=== PATIENT | male | born 1940 | race African-American/Black ===

== ENCOUNTER → 2016-12-04 14:31 | Outpatient (CLI) | payer MEDICARE, OTHER ==
[2012-11-27 15:24] VITALS: BMI 19.5
== END | disposition home or self-care (01) ==
LOC: D.MRI 14:30
DX: M25.512 Pain in left shoulder (principal)

== ENCOUNTER → 2019-04-16 06:15 | Day surgery (SDC) | payer MEDICARE, OTHER ==
[2019-04-14 09:12] LABS: CALC OSMOLALITY 278 mosm/kg (275-300); CALCIUM 8.9 mg/dL (8.5-10.1); CARBON DIOXIDE 30.5 mmol/L (21.0-32.0); CHLORIDE - SERUM 104 mmol/L (98-107); CREATININE - SERUM 0.9 mg/dL (0.6-1.3); GLUCOSE 93 mg/dL (74-106); POTASSIUM - SERUM 4.3 mmol/L (3.5-5.1); SODIUM 140 mmol/L (136-145); UREA NITROGEN 13 mg/dL (7-18); eGFR NON AFRICAN AMERICAN 87 mL/min (90-120)
[2019-04-14 09:19] LABS: HEMATOCRIT 40.9 % (42.0-54.0); HEMOGLOBIN 13.2 g/dL (13.5-17.5); MCH 26.8 pg (26.0-34.0); MCHC 32.3 g/dL (31.0-37.0); MEAN PLATELET VOLUME 10.6 fL (7.4-10.4); RBC 4.93 10x6/uL (4.20-6.10); RDW 15.2 % (11.5-14.5); WBC 4.5 10x3/uL (4.8-10.8)
[~2019-04-16] VITALS: Ht 177.8 cm; Wt 63.5 kg
[~2019-04-16 06:15] MED LIST: ACETAMINOPHEN500 M1 PO; BAYER CHEWABLE81 MG PO; BISOPROLOL 5 MG PO; FLOMAX0.4 MG PO; HYDROCODON-ACE1 EA10 PO; LANOXIN125 MCG PO; LISINOPRIL2.5 MG PO; NORVASC2.5 MG PO; ZOCOR40 MG PO; [UNRECOGNIZED DRUG - OTHER] PO
[2019-04-16 06:54] VITALS: BP 128/73; Ht 177.8 cm; Wt 63.5 kg
--- NOTE | 2019-04-16 10:39 | OP ---
PATIENT NAME: TARAH ROCK MEDICAL RECORD: [id number] :42 [facility] ADMISSION DATE: SURGEON: PIERRE PARK MD DATE OF OPERATION: 04/16/2019 PREOPERATIVE DIAGNOSES: Rotator cuff tear of the left shoulder with impingement syndrome. POSTOPERATIVE DIAGNOSES: Rotator cuff tear of the left shoulder with impingement syndrome. PROCEDURES: 1. Arthroscopic rotator cuff repair. 2. Arthroscopic distal clavicle excision done through separate incision. 3. Arthroscopic subacromial decompression with acromioplasty and bursectomy. SURGEON: Pierre Park MD ASSISTANT PROFESSOR OF EDUCATION: Arjun Sow. INTRAOPERATIVE COMPLICATIONS: None. SUMMARY OF PATHOLOGIC FINDINGS: Consistent with the preoperative MRI. The patient had a very small rotator cuff tear; however, yifn-ug-qxmo, which was amenable to jfsc-mf-vzma repair rather than anchored repair. 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 OPERATIVE SUMMARY IN DETAIL: After obtaining the appropriate preoperative orthopedic surgery consent as well as anesthetic consultation, evaluation and clearance, the patient was brought to the operating room and placed on operating table in supine position. After general laryngeal mask airway was administered, the patient was placed in right lateral decubitus position. All pressure points were well padded to include down leg peroneal pad as well as axillary roll. The patient was held firmly to the operating table using the vacuum pack suction system. Left upper extremity and shoulder were then prepped and draped in routine sterile fashion. The arm was held in the Arthrex traction boom at 30 degrees of forward flexion, 30 degrees of abduction with 10 pounds of traction laterally. Arthroscopy was established in the glenohumeral joint from the posterior portal. Anterior portal was established from the anterior safe interval. Diagnostic arthroscopy did show the patient to have the above-mentioned findings. Arthroscopy was established in the subacromial space. Harrah tissue ablation system was utilized to denude the undersurface of the acromion of all soft tissue elements and release the coracoacromial ligament. A 5.0 barrel bur was then used to perform decompression and acromioplasty at the level of the acromioclavicular joint. At this point, through a separate arthroscopic anterior incision arthroscopic distal clavicle excision was performed for 1 cm. All bursa was then cleaned across the top of the rotator cuff and the rotator cuff tear as noted above was found. A simple zifh-lg-yjzd bpywew-ja-anhce suture was placed arthroscopically, tied, resulting in reapproximation of the small rotator cuff tear. Having completed this, arthroscopy portals were closed in routine interrupted fashion using 4-0 Prolene. Sterile dressings were applied. The patient was awakened and taken to recovery room in stable condition. All final needle and sponge counts were correct. 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
--- NOTE | 2019-04-16 14:14 | NUR ---
1130 ALL DISCHARGE CRITERIA MET. IV REMOVED WITH CATHALON INTACT. TAKEN OUT VIA WC AND ASSISTED TO CAR WITH FAMILY. ADVISED TO CALL OR COME BACK IF ANY PROBLEMS.
== END | disposition home or self-care (01) ==
LOC: D.OPS 04-14 07:40 → D.PAN 07:30 → D.OPS 07:30
PROVIDERS: Anesthesiology; ATTEND Orthopaedic Surgery
DX: M75.112 Incomplete rotator cuff tear or rupture of left shoulder, not specified as traumatic (principal); M75.42 Impingement syndrome of left shoulder; Z01.812 Encounter for preprocedural laboratory examination

== ENCOUNTER → 2020-04-29 11:16 | Outpatient (CLI) | payer MEDICARE, OTHER ==
[2019-04-16 06:54] VITALS: BMI 20.1
== END | disposition home or self-care (01) ==
LOC: D.HCCECHO 11:16
PROVIDERS: ATTEND Internal Medicine Cardiovascular Disease
DX: I25.10 Atherosclerotic heart disease of native coronary artery without angina pectoris (principal)

== ENCOUNTER 2020-05-31 11:17 | Inpatient (IN) | payer MEDICARE, OTHER ==
[~2020-05-31] VITALS: Ht 177.8 cm; Wt 67.1 kg
--- NOTE | ~2020-05-31 | HEMODYNAMI ---
PATIENT:TARAH ROCK MEDICAL RECORD: [id number] : 42 LOCATION:[facility] ADMISSION DATE: 05/31/20 Generatedon:06/04/202015:24 Patient name: TARAH ROCK Patient #: [id number] SSN: : 1940 Date of study: 06/04/2020 Page: Of Hemodynamic Procedure Report Patient Data Patient Demographics Procedure consent was obtained First Name: TARAH Gender: Male Last Name: SHWETA : 1940 Patient #: [id number] Age: 80 year(s) Race: Black Additional ID: [id number] Contact details [address]: [address] [place] [address] State: [place] City: [place] Zip code: [address] Past Medical History Allergies: No known allergies Admission Admission Data Admission Date: 05/31/2020 Admission Time: 14:08 Room #: [id number] Height (in.): 70 BSA: 1.81 (m2) Height (cm.): 177.8 BMI: 20.52 (kg/m2) Weight (lbs.): 143 Weight (kg.): 64.86 Procedure Procedure Types Cath Procedure Peripheral Cath Diagnostic Procedure 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 Peripheral Procedures Abd/Extremity Extremities Bilat Lower Extremity Procedure Description Procedure Date Procedure Date: 06/04/2020 Procedure Start Time: 12:05 Procedure Staff Name Function Steve Bender MD Performing Physician Tisha Jack RT Picture Engraver Geoff Mc CRNA Additional personnel Herlinda Mercedes RN Nurse Christian Webber RT Scrub Procedure Data Cath Procedure Fluoroscopy Diagnostic fluoroscopy Total fluoroscopy Time: time: 49.8 min 49.8 min Diagnostic fluoroscopy Total fluoroscopy dose: dose: 1986 mGy 1986 mGy Contrast Material Contrast Material Type Amount (ml) Isovue 300 310 Entry Location Entry Primary Successful Side Size Upsize Upsize Entry Closure Succes sful Closure Location (Fr) 1 (Fr) 2 (Fr) Remarks Device Remarks Femoral Exoseal artery Diagnostic catheters Device Type Used For End Catheter Placement DIAGNOSTIC IMT 5Fr Catheter ([id number]) Procedure Medications Medication Administration Route Dosage Heparin Flush Bag added to field 3 bags (1000units/500ml NS) Lidocaine 1% added to field 20 Refer to Anesthesia Notes for Sedation Medications Heparin Bolus I.V. 5000 units Radial Cocktail I.A. 1 syringe (Verapamil 2mg/Nitro 400mcg/Heparin 1500units) Heparin Bolus I.V. 2000 units Nitroglycerin IC/IA I.A. 300 mcg Hemodynamics Rest BSA: 1.81 (m2) O2 Consumption: Estimated: 210.6 (ml/min) O2 Consumption indexed: Estimated:116.35 (ml/min/m) Heart Rate: 75 (bpm) Snapshots Pre Cath Intra NCS Post Cath Vital Signs Time Heart Resp SPO2 etCO2 NIBP (mmHg) Rhythm Pain Sedation Rate (ipm) (%) (mmHg) Status Level (bpm) 11:41:46 77 16 26.5 Aborted NSR 0 (11) 10(A) , No pain 11:43:53 75 15 28 161/82(110) NSR 0 (11) 10(A) , No pain 11:48:13 74 14 31.1 150/78(123) NSR 0 (11) 10(A) , No pain 11:52:29 74 12 28.8 149/81(116) NSR 0 (11) 10(A) , No pain 11:57:28 72 13 100 27.3 Measuring NSR 0 (11) 10(A) , No pain 11:57:41 69 12 100 31.8 147/73(116) NSR 0 (11) 10(A) , No pain 12:01:57 74 13 98 29.6 146/79(114) NSR 0 (11) 10(A) , No pain 12:06:09 91 13 95 1.5 130/91(111) NSR 0 (11) 10(A) , No pain 12:11:07 105 11 99 15.9 Measuring NSR 0 (11) 10(A) , No pain 12:12:31 113 7 99 18.9 Time NSR 0 (11) 10(A) Exceeded , No pain 12:14:06 93 14 100 16.6 165/97(124) NSR 0 (11) 10(A) , No pain 12:18:24 93 16 100 21.2 142/84(108) NSR 0 (11) 10(A) , No pain 12:22:38 98 19 100 11.3 124/76(100) NSR 0 (11) 10(A) , No pain 12:26:44 99 17 100 21.2 131/81(100) NSR 0 (11) 10(A) , No pain 12:30:53 98 18 100 31.1 130/74(106) NSR 0 (11) 10(A) , No pain 12:35:05 92 12 100 34.1 118/70(95) NSR 0 (11) 10(A) , No pain 12:39:15 90 12 100 15.1 108/61(86) NSR 0 (11) 10(A) , No pain 12:43:23 88 9 100 0 106/58(82) NSR 0 (11) 10(A) , No pain 12:47:29 87 11 100 30.3 96/60(76) NSR 0 (11) 10(A) , No pain 12:51:35 85 8 100 31.1 94/51(78) NSR 0 (11) 10(A) , No pain 12:55:38 88 9 100 0 87/50(65) NSR 0 (11) 10(A) , No pain 12:59:42 86 9 100 0 82/46(62) NSR 0 (11) 10(A) , No pain 13:03:42 85 10 100 42.4 85/52(66) NSR 0 (11) 10(A) , No pain 13:07:45 82 9 100 37.1 80/45(60) NSR 0 (11) 10(A) , No pain 13:11:45 90 10 100 22.7 89/51(66) NSR 0 (11) 10(A) , No pain 13:16:44 93 25 100 31.1 Measuring NSR 0 (11) 10(A) , No pain 13:17:25 92 20 100 24.2 135/77(113) NSR 0 (11) 10(A) , No pain 13:21:33 91 18 100 15.1 69/48(64) NSR 0 (11) 10(A) , No pain 13:23:40 99 14 100 10.6 100/62(80) NSR 0 (11) 10(A) , No pain 13:28:19 103 9 95 53.1 137/94(101) NSR 0 (11) 10(A) , No pain 13:32:29 96 25 100 30.3 152/82(118) NSR 0 (11) 10(A) , No pain 13:36:40 109 25 100 13.6 167/102(126) NSR 0 (11) 10(A) , No pain 13:40:46 95 15 100 9.8 108/74(89) NSR 0 (11) 10(A) , No pain 13:44:54 93 14 100 0 89/53(67) NSR 0 (11) 10(A) , No pain 13:48:56 93 13 100 8.3 88/55(66) NSR 0 (11) 10(A) , No pain 13:52:57 90 10 100 0 80/54(68) NSR 0 (11) 10(A) , No pain 13:56:10 91 12 100 9 95/52(80) NSR 0 (11) 10(A) , No pain 14:00:09 96 21 100 14.4 111/68(101) NSR 0 (11) 10(A) , No pain 14:04:15 99 19 100 11.3 113/76(86) NSR 0 (11) 10(A) , No pain 14:08:23 89 11 100 2.2 102/63(80) NSR 0 (11) 10(A) , No pain 14:12:31 82 11 100 8.3 84/50(66) NSR 0 (11) 10(A) , No pain 14:16:33 81 11 100 11.3 77/50(69) NSR 0 (11) 10(A) , No pain 14:20:32 79 11 100 9.8 74/45(58) NSR 0 (11) 10(A) , No pain 14:24:30 79 9 100 10.6 78/48(71) NSR 0 (11) 10(A) , No pain 14:28:30 77 11 100 10.6 81/47(70) NSR 0 (11) 10(A) , No pain 14:32:31 77 10 100 11.3 76/43(58) NSR 0 (11) 10(A) , No pain 14:36:31 76 9 100 11.3 85/44(60) NSR 0 (11) 10(A) , No pain 14:40:31 96 8 100 12.1 103/57(72) NSR 0 (11) 10(A) , No pain 14:44:34 101 10 100 9 103/63(81) NSR 0 (11) 10(A) , No pain 14:48:38 103 11 100 32.5 110/59(76) NSR 0 (11) 10(A) , No pain 14:52:50 115 15 100 26.5 118/64(81) NSR 0 (11) 10(A) , No pain 14:57:08 115 17 100 0.7 129/70(90) NSR 0 (11) 10(A) , No pain 15:01:59 114 16 100 29.5 144/75(108) NSR 0 (11) 10(A) , No pain 15:06:13 113 18 100 27.2 146/73(96) NSR 0 (11) 10(A) , No pain 15:10:27 112 17 100 28.8 139/79(100) NSR 0 (11) 10(A) , No pain 15:15:26 110 8 100 0 Measuring NSR 0 (11) 10(A) , No pain 15:15:28 110 13 100 0 129/78(103) NSR 0 (11) 10(A) , No pain 15:19:36 107 10 100 36.3 120/74(89) NSR 0 (11) 10(A) , No pain 15:23:39 100 33.3 122/81(98) NSR 0 (11) 10(A) , No pain Medications Time Medication Route Dose Verified Delivered Reason Notes Ef fectiveness by by 11:36:54 Heparin Flush added 3 bags Steve Wilson used for Bag to Napoleon Bender MD procedure (1000units/500ml field MEJIA NS) 11:37:05 Lidocaine 1% added 20ml Steve Wilson for local to vial Napoleon Bender MD anesthetic field MEJIA 12:52:10 Refer to Steve Wilson Anesthesia Notes Napoleon Bender MD for Sedation MD Medications 12:52:29 Heparin Bolus I.V. 5000 Steve Pate Per units Daren Bender RN physician 13:32:00 Radial Cocktail I.A. 1 Steve Steve (Verapamil syringe Napoleon Bender MD 2mg/Nitro 400mcg/Heparin 1500units) 13:55:10 Heparin Bolus I.V. 2000 Steve Herlinda Per units Daren Bender RN physician 14:28:27 Nitroglycerin I.A. 300 mcg Steve Wilson IC/IA Napoleon Bender MD MD Procedure Log Time Note 11:25:09 Use device set IR Diagnostic 11:25:10 Tegaderm 4 x 4 (1626W) opened to sterile field. 11:25:11 Sterile Angiographic Pack opened to sterile field. 11:25:12 Bag Decanter (2002S) opened to sterile field. 11:25:13 ACIST Manifold (22026) opened to sterile field. 11:25:14 ACIST Hand Control (52845) opened to sterile field. 11:25:15 ACIST Syringe (20746) opened to sterile field. 11:25:31 SHEATH 5FR Diller (DRU982) opened to sterile field. 11:25:32 TUBING Contrast Injection High Pressure (QBL254U) opened to sterile field. 11:25:40 Micropuncture VSI 4FR kit opened to sterile field. 11:25:47 DOC .035 wire (X99841) opened to sterile field. 11:25:55 CHI 260 wire (W41874) opened to sterile field. 11:26:03 Angiodynamics Omniflush 5Fr 65cm (66960880) opened to sterile field. 11:36:39 GLIDE WIRE ANGLE 260cm (HE3202) opened to sterile field. 11:36:54 Heparin Flush Bag (1000units/500ml NS) 3 bags added to field was administered by Steve Bender MD; used for procedure; Verbal order read back and verified. 11:37:02 Patient Height : 70 inches 11:37:05 Lidocaine 1% 20ml vial added to field was administered by Steve Bender MD; for local anesthetic; Verbal order read back and verified. 11:37:10 Patient Weight : 143 lbs 11:37:14 Time tracking: Regular hours (M-F 7:00 - 5:00) 11:38:10 GLIDE CATHETER 5FR ANGLED 65cm (CG507) opened to sterile field. 11:38:12 - 11:38:19 Plan of Care:Hemodynamics will remain stable., Cardiac rhythm will remain stable., Comfort level will be maintained., Respiratory function will remain adequate., Patient/ family verbilizes understanding of procedure., Procedure tolerated without complication., Recovers from procedure without complications.. 11:38:27 Patient received from Med/Surg to IR Alert and oriented. Tansferred to table in Supine position. 11:38:30 Signed procedure consent form obtained from patient. 11:38:37 H&P Date Dictated: 06/04/2020 Within 30 days and on chart.. 11:38:38 Pre-procedure instructions explained to patient. 11:38:39 Pre-op teaching completed and patient verbalized understanding. 11:38:43 Family unavailable. 11:38:46 Patient NPO since Midnight. 11:38:57 Patient allergic to No known allergies 11:39:02 Is the patient allergic to Iodine/contrast media? No. 11:39:06 Is patient on blood thinner?No 11:39:26 Patient diabetic? No. 11:39:29 - 11:39:32 ----Pre-sedation anethsthesia assessment.----see anesthesia notes for monitoring of patient during procedure 11:39:35 Previous problem with sedation/anesthesia? No ? 11:41:14 ECG and BP/O2 sat monitors applied to patient. 11:41:24 Vital chart was started 11:42:00 Baseline sample Acquired. 11:42:48 Full Disclosure recording started 11:42:54 - 12:03:21 Pre procedure: right dorsailis pedis pulse Doppler 12:03:24 Pre procedure: left dorsailis pedis pulse Doppler 12:03:29 Pre procedure: right posterior tibial pulse Doppler 12:03:33 Pre procedure: left posterior tibial pulse Doppler 12:03:39 Right groin area was prepped with chlora-prep and draped in sterile fashion 12:03:42 - 12:03:50 Physician arrived 12:03:51 --------ALL STOP TIME OUT------ 12:03:51 Final Timeout: patient, procedure, and site verified with staff and physician. All members of the team are in agreement. 12:03:56 Fire Safety Assessment: A--An alcohol-based skin anteseptic being used preoperatively., C--Open oxygen or nitrous oxide is being used. 12:04:02 1) 90+ Normal kidney functon but urine findings or structural abnormalities or genetic trait point to kidney disease. 12:05:03 Procedure started. 12:05:08 Local anesthetic to right femoral artery with Lidocaine 1% by Steve Bender MD.INITIAL ACCESS ONLY 12:20:43 AMPLATZ Super Stiff 75cm wire ([id number]) opened to sterile field. 12:25:45 TORQUE DEVICE PLASTIC .038 ( TD01) opened to sterile field. 12:38:14 Cook Efrain 1 90 cm Guide Sheath opened to sterile field. 12:46:23 CXI Catheter 90cm (C76298) opened to sterile field. 12:52:01 CXI SUPPORT .035 135 CM STR catheter (S96612) opened to sterile field. 12:52:10 Refer to Anesthesia Notes for Sedation Medications was administered by Steve Bender MD; ; Verbal order read back and verified. 12:52:29 Heparin Bolus 5000 units I.V. was administered by Herlinda Mercedes RN; Per physician; Verbal order read back and verified. 13:13:51 Micropuncture VSI 4FR kit opened to sterile field. 13:13:59 CHOICE PT Extra Support J 300cm guide wire (6920008T5) opened to steril e field. 13:14:14 Tegaderm 6 x 8 (1628) opened to sterile field. 13:14:15 Tegaderm 6 x 8 (1628) opened to sterile field. 13:22:39 SHEATH 5FR Diller (PWB053) opened to sterile field. 13:28:28 ROADRUNNER .035 260 glide wire (R92643) opened to sterile field. 13:32:00 Radial Cocktail (Verapamil 2mg/Nitro 400mcg/Heparin 1500units) 1 syring e I.A. was administered by Steve Bender MD; ; Verbal order read back and verified. 13:41:22 COOK SHEATH 6FR RAABE 70CM (Q47382) opened to sterile field. 13:47:52 SHEATH 6FR Destination (RSR01) opened to sterile field. 13:47:53 SHEATH 7FR Destination (RSR04) opened to sterile field. 13:52:35 SNARE, GOOSENECK SNARE 10MM opened to sterile field. 13:55:10 Heparin Bolus 2000 units I.V. was administered by Herlinda Mercedes RN; Per physician; Verbal order read back and verified. 13:56:55 INFLATOR BasixTOUCH (BK1838) opened to sterile field. 13:57:16 Inflate balloon Inflation number: 1 A Evercross 4 x 4 x 135 Balloon ([id number]) was prepped and advanced across the Undefined1 , then inflated . 14:02:58 A DIAGNOSTIC IMT 5Fr Catheter ([id number]) was advanced over the wire an d used for . 14:20:22 GLIDE WIRE ANGLE 260cm (UP4310) opened to sterile field. 14:26:24 GUIDEWIRE V-18 CONTROL ([id number]) opened to sterile field. 14:28:27 Nitroglycerin IC/IA 300 mcg I.A. was administered by Steve Bender MD; ; Verbal order read back and verified. 14:44:57 CHOICE PT Extra Support J 300cm guide wire (8495727M2) opened to steril e field. 14:45:48 Inflate balloon Inflation number: 1 A NANOCROSS ELITE 3 X 60 ([id number] was prepped and advanced across the Undefined2 , then inflated . 14:50:26 Inflate balloon Inflation number: 2 A CHOCOLATE 4.0 x 40 x 135 balloon ([id number]) was prepped and advanced across the Undefined2 , then inflated . 15:04:23 AMPLATZ Super stiff 3mm J 260cm wire ([id number]) opened to sterile field. 15:04:37 SHEATH 7FR Diller (WBN755) opened to sterile field. 15:06:28 EXOSEAL 7Fr (EX700) opened to sterile field. 15:09:25 A sheath was inserted into the Femoral artery 15:09:25 Sheath removed intact; hemostasis achieved with Exoseal to the Femoral artery. 15:14:07 Procedure ended.(Physican Out) 15:15:46 Fluoroscopy time 49.80 minutes. 15:16:07 Fluoroscopy dose: 1985 mGy 15:16:16 Flurop Dose total: 1985 15:16:26 Contrast amount:Isovue 300 310ml. 15:16:28 Procedure and supply charges have been captured, reviewed, submitted an d are correct. 15:17:55 Report given to PCU. 15:24:40 Vital chart was stopped Intervention Summary Intervention Notes Time ActionType Lesion and Equipment Used Action# Pressure Duration Attributes 13:57:16 Inflate Undefined1 Evercross 4 x 4 x 1 0 00:00 balloon 135 Balloon ([id number]) 14:45:48 Inflate Undefined2 NANOCROSS ELITE 2 1 0 00:00 balloon X 60 ([id number] 14:50:26 Inflate Undefined2 CHOCOLATE 4.0 x 2 0 00:00 balloon 40 x 135 balloon ([id number]) Device Usage Item Name Manufacture Quantity Catalog Number [facility] nt Minimal Lot# / Charge Number Stock Stock Serial# Code Tegaderm 4 x 4 3M 1 1626W 232409 690165 46638 5 5 (1626W) Sterile Cardinal 1 [id number] 726533 39969 5 5 Angiographic Pack Health Bag Decanter Microtek 1 2001S 376431 93642 70593 3 5 (2001S) Medical Inc. ACIST Manifold Acist Medical 1 44910 307449 036580 62125 1 5 (91575) Systems Inc ACIST Hand Acist Medical 1 51548 716995 295257 55220 5 5 Control (01527) Systems Inc ACIST Syringe ist Medical 1 26235 464483 871479 46067 4 20 (96210) Systems Inc SHEATH 5FR Terumo 2 GEL325 211180 894144 32280 1 5 Diller (WNM925) TUBING Contrast [facility] 1 TRA858R 130847 308019 06452 8 5 Injection High Pressure (NQN478N) Micropuncture VSI VSI VASCULAR 2 7266V 894029 78089 3 5 4FR kit SOLUTIONS DOC .035 wire [facility] 1 S72180 343405 96790 0 5 (Z22401) CHI 260 wire [facility] 1 F45857 537215 20546 66758 2 5 (S60337) Angiodynamics Angiodynamics 1 86121148 622049 829803 88191 5 5 Omniflush 5Fr 65cm (58049153) GLIDE WIRE ANGLE Terumo 2 OI1744 674171 931082 41919 1 5 260cm (YA8582) GLIDE CATHETER Terumo 1 CG507 148877 27667 7 5 5FR ANGLED 65cm (CG507) AMPLATZ Super Shiloh 1 [id number] 533958 448733 18806 8 5 Stiff 75cm wire Scientific ([id number]) TORQUE DEVICE Shiloh 1 TD01 692192 176617 52917 5 5 PLASTIC .038 ( Scientific TD01) Cook Efrain 1 90 [facility] 1 C66296 296740 123018 75882 7 1 cm Guide Sheath CXI Catheter 90cm [facility] 1 K83996 618349 435472 80091 7 5 [id number] (U32498) CXI SUPPORT .035 [facility] 1 I17714 985752 056149 45071 0 5 [id number] 135 CM STR catheter (M37771) CHOICE PT Extra Shiloh 2 [id number] 336028 632353 13616 2 5 Support J 300cm Scientific guide wire (2488108V7) Tegaderm 6 x 8 3M 2 1628 875263 35196 5 5 (1628) ROADRUNNER .035 Cook Medical 1 Z81859 602418 543376 89112 0 5 [id number] 260 glide wire (F19200) COOK SHEATH 6FR Cook Medical 1 U06554 272943 94050 92971 0 1 [id number] RAABE 70CM (I92947) SHEATH 6FR Terumo 1 RSR01 325789 24572 17970 1 5 Destination (RSR01) SHEATH 7FR Terumo 1 RSR04 303966 763531 70743 9 5 Destination (RSR04) SNARE, GOOSENECK Medtronic 1 JE9316 574698 59052 54265 5 5 SNARE 10MM INFLATOR [facility] Medical 1 VE8690 395916 783688 69495 5 5 BasixTOUCH (UJ6982) Evercross 4 x 4 x Medtronic 1 [id number] 666291 102424 43539 8 5 135 Balloon ([id number]) DIAGNOSTIC IMT Shiloh 1 [id number] 146066 923491 59856 5 60134953 5Fr Catheter Scientific (245516011) GUIDEWIRE V-18 Shiloh 1 536341 804763 31690 4 1 CONTROL Scientific ([id number]) NANOCROSS ELITE 2 Medtronic 1 [id number] 598032 91268 55102 7 1 X 60 ([id number] CHOCOLATE 4.0 x Medtronic 1 [id number] 087034 20975 32917 7 5 40 x 135 balloon O ([id number]) TW AMPLATZ Super Shiloh 1 [id number] 108541 19486 5 5 stiff 3mm J 260cm Scientific wire ([id number]) SHEATH 7FR Terumo 1 HHH406 604171 379913 71683 8 5 Diller (HXG336) EXOSEAL 7Fr Cardinal 1 EX700 100905 915756 28461 3 5 (EX700) Health Signature Audit [place] Stage Time Signature Unsigned Intra-Procedure 06/04/2020 Tisha Jack 3:24:35 PM RT(R) [facility] [address] [place] [address]
[2020-05-31 12:18] LABS: ANION GAP 5.9 mmol/L (8-16); CALCIUM 8.9 mg/dL (8.5-10.1); CARBON DIOXIDE 31.4 mmol/L (21.0-32.0); CREATININE - SERUM 1.1 mg/dL (0.6-1.3); POTASSIUM - SERUM 4.3 mmol/L (3.5-5.1)
[2020-05-31 12:19] LABS: BASOPHILS 0.3 % (0-2); EOSINOPHILS 1.8 % (0-7); HEMATOCRIT 39.5 % (42.0-54.0); HEMOGLOBIN 12.7 g/dL (13.5-17.5); IMMATURE GRANULOCYTES 4.5 % (0-5); MCH 26.8 pg (26.0-34.0); MCHC 32.2 g/dL (31.0-37.0); MCV 83.5 fL (80.0-100.0); MEAN PLATELET VOLUME 9.5 fL (7.4-10.4); MONOCYTES 9.2 % (2-11); NEUTROPHILS 54.2 % (40-80); RBC 4.73 10x6/uL (4.20-6.10); RDW 14.6 % (11.5-14.5); WBC 6.7 10x3/uL (4.8-10.8)
[2020-05-31 12:20] LABS: PLATELET COUNT 287 10x3/uL (130-400)
[2020-05-31 12:24] LABS: APTT 28.9 SECONDS (22.8-39.4); INR 1.05 (0.85-1.17); PROTIME 13.7 SECONDS (11.6-15.0)
[2020-05-31 12:25] LABS: ALBUMIN 3.2 g/dL (3.4-5.0); BILIRUBIN - TOTAL 0.44 mg/dL (0.2-1.3); PROTEIN - SERUM 6.9 g/dL (6.4-8.2)
--- NOTE | 2020-05-31 13:38 | NUR ---
iv established 20 GA LAC
[2020-05-31 13:59] VITALS: BP 126/64
[2020-05-31 15:16] VITALS: BP 116/67; BMI 20.5
[2020-05-31 15:44] LABS: ERYTHROCYTE SEDIMENTATION RATE 18 mm/hr (0-20)
[2020-05-31] MEDS ORDERED: NORVASC5 MG PO (17:55)
[2020-05-31 20:00] VITALS: BP 114/54
[2020-06-01 04:00] VITALS: BP 122/65
--- NOTE | 2020-06-01 07:58 | NUR ---
PT RESTING IN BED WITH EYES OPEN CALL LIGHT IN REACH NO PROBLEMS WILL MONITER
[2020-06-01 09:35] VITALS: BP 135/75
[2020-06-01 11:53] LABS: BASOPHILS 0.2 % (0-2); EOSINOPHILS 2.6 % (0-7); HEMATOCRIT 39.1 % (42.0-54.0); HEMOGLOBIN 12.4 g/dL (13.5-17.5); IMMATURE GRANULOCYTES 2.9 % (0-5); LYMPHOCYTES 28.9 % (15-50); MCH 26.3 pg (26.0-34.0); MCHC 31.7 g/dL (31.0-37.0); MEAN PLATELET VOLUME 9.2 fL (7.4-10.4); NEUTROPHILS 54.4 % (40-80); PLATELET COUNT 255 10x3/uL (130-400); RBC 4.71 10x6/uL (4.20-6.10); RDW 14.8 % (11.5-14.5); WBC 5.4 10x3/uL (4.8-10.8)
[2020-06-01 12:11] LABS: CALC OSMOLALITY 277 mosm/kg (275-300); CALCIUM 8.1 mg/dL (8.5-10.1); CARBON DIOXIDE 28.5 mmol/L (21.0-32.0); CHLORIDE - SERUM 107 mmol/L (98-107); DIGOXIN 0.38 ng/mL (0.90-2.00); GLUCOSE 100 mg/dL (74-106); MAGNESIUM - SERUM 1.9 mg/dL (1.8-2.4); PHOSPHOROUS 3.4 mg/dL (2.5-4.9); POTASSIUM - SERUM 4.1 mmol/L (3.5-5.1); SODIUM 140 mmol/L (136-145); UREA NITROGEN 9 mg/dL (7-18); eGFR NON AFRICAN AMERICAN 77 mL/min (90-120)
[2020-06-01 13:25] VITALS: BP 144/79
[2020-06-01 14:08] VITALS: BMI 20.5
--- NOTE | 2020-06-01 16:07 | NUR ---
UP TO BATHROOM,WITHOUT NEEDS
--- NOTE | 2020-06-01 16:50 | NUR ---
PT RESTING IN BED WITH EYES OPEN CALL LIGHT IN REACH WILL MONITER
[2020-06-01 17:36] VITALS: BP 103/63
--- NOTE | 2020-06-01 19:20 | NUR ---
LYING IN BED. AT BEDSIDE. ALERT AND ORIENTED X4. AMBULATORY. LT ANKLE/FOOT IS RED AND WARM TO TOUCH WITH 1+ EDEMA NOTED. RATES PAIN IN LLE 8 WHEN FLEXING FOOT BUT DENIES NEEDS FOR PAIN MED AT THIS TIME. NS @ 75 MLHR INFUSING IN LT AC. RESP EVEN AND NONLABORED. NO DISTRESS. SR ELEVATED X2. CL IN REACH.
[2020-06-01 20:00] VITALS: BP 119/62
--- NOTE | 2020-06-02 01:22 | NUR ---
LYING ON RT SIDE IN BED WITH EYES CLOSED. RESP EVEN AND NONLABORED. NO DISTRESS. CL IN REACH.
--- NOTE | 2020-06-02 01:35 | NUR ---
WOKE UP AND C/O PAIN IN LT ANKLE RATING 9. MEDICATE WITH MORHPINE ORDERED. OFFERED ZOFRAN BUT DECLINED. CL IN REACH.
--- NOTE | 2020-06-02 02:59 | NUR ---
RESTING QUIETLY WITH EYES CLOSED. NO DISTRESS. RESP EVEN AND NONLABORED. CL IN REACH.
[2020-06-02 04:00] VITALS: BP 113/60; BP 113/62
[2020-06-02 04:51] LABS: HEMATOCRIT 36.1 % (42.0-54.0); HEMOGLOBIN 11.6 g/dL (13.5-17.5); LYMPHOCYTES 28.8 % (15-50); MCHC 32.1 g/dL (31.0-37.0); MCV 84.1 fL (80.0-100.0); MEAN PLATELET VOLUME 9.3 fL (7.4-10.4); NEUTROPHILS 59.6 % (40-80); PLATELET COUNT 266 10x3/uL (130-400); RBC 4.29 10x6/uL (4.20-6.10); WBC 5.4 10x3/uL (4.8-10.8)
[2020-06-02 05:09] LABS: CALC OSMOLALITY 278 mosm/kg (275-300); CARBON DIOXIDE 27.9 mmol/L (21.0-32.0); CHLORIDE - SERUM 106 mmol/L (98-107); GLUCOSE 88 mg/dL (74-106); MAGNESIUM - SERUM 1.8 mg/dL (1.8-2.4); PHOSPHOROUS 3.2 mg/dL (2.5-4.9); POTASSIUM - SERUM 4.4 mmol/L (3.5-5.1); SODIUM 140 mmol/L (136-145); VANCOMYCIN - TROUGH 7.5 ug/mL (10.0-20.0); eGFR NON AFRICAN AMERICAN 77 mL/min (90-120)
[2020-06-02 05:17] LABS: UREA NITROGEN 14 mg/dL (7-18)
--- NOTE | 2020-06-02 06:19 | NUR ---
LYING SUPINE IN BED WITH EYES CLOSED. RESP EVEN AND NONLABORED. NO DISTRESS. CL IN REACH. HAS RESTED WELL THIS SHIFT.
[2020-06-02 10:22] VITALS: BP 118/60
[2020-06-02 13:46] VITALS: BP 126/77
[2020-06-02 18:07] VITALS: BP 160/73
[2020-06-02 20:00] VITALS: BP 133/76
[2020-06-03 04:00] VITALS: BP 133/76
[2020-06-03 06:04] LABS: HEMOGLOBIN 11.9 g/dL (13.5-17.5); LYMPHOCYTES 26.9 % (15-50); MCH 26.5 pg (26.0-34.0); MCHC 31.3 g/dL (31.0-37.0); MCV 84.6 fL (80.0-100.0); NEUTROPHILS 65.4 % (40-80); PLATELET COUNT 247 10x3/uL (130-400); RBC 4.49 10x6/uL (4.20-6.10); RDW 14.9 % (11.5-14.5); WBC 5.7 10x3/uL (4.8-10.8)
[2020-06-03 06:19] LABS: CALC OSMOLALITY 275 mosm/kg (275-300); CARBON DIOXIDE 26.3 mmol/L (21.0-32.0); CHLORIDE - SERUM 107 mmol/L (98-107); CREATININE - SERUM 0.9 mg/dL (0.6-1.3); GLUCOSE 87 mg/dL (74-106); MAGNESIUM - SERUM 1.9 mg/dL (1.8-2.4); PHOSPHOROUS 3.4 mg/dL (2.5-4.9); SODIUM 139 mmol/L (136-145); UREA NITROGEN 11 mg/dL (7-18); eGFR NON AFRICAN AMERICAN 87 mL/min (90-120)
[2020-06-03 06:21] LABS: APTT 35.1 SECONDS (22.8-39.4)
[2020-06-03 06:25] LABS: INR 1.05 (0.85-1.17); PROTIME 13.7 SECONDS (11.6-15.0)
--- NOTE | 2020-06-03 07:15 | NUR ---
REC'D IN BED WITH EYES CLOSED EASILY TO AROUSED WHEN NAME IS CALLED. RESP EVEN AND UNLABORED WITH NO DISTRESS NOTED. ASSESMENT COMPLETED. DENIES ANY PAIN OR DISCOMFORT AT THIS TIME. C/L IN REACH AT BEDSIDE.
[2020-06-03 09:52] VITALS: BP 122/66
--- NOTE | 2020-06-03 12:40 | NUR ---
I have reviewed this patient and I concur with the Shift Assessment completed by the Licensed Practical Nurse today this shift.
--- NOTE | 2020-06-03 13:09 | NUR ---
Nutrition follow-up: Pt NPO today for arteriogram on left lower extremety PO intake of regular diet 100% of last 3 meals Labs reviewed Wt: 143# RDN following.
--- NOTE | 2020-06-03 16:00 | NUR ---
WAS INFORMED BY NURSE FOR IR THAT PT PROCEDURE WILL BE DONE ON TOMORROW SOME TIME. PT AND MADE AWARE.
[2020-06-03 17:49] VITALS: BP 125/72
--- NOTE | 2020-06-03 19:00 | NUR ---
BEDSIDE REPORT RECEIVED AND CARE OF PT ASSUMED. PT LYING IN SUPINE POSITION WATCHING TV. IV TO LEFT AC PATENT WITH NS INFUSING AT 75 ML/HR. WILL MONITOR FOR NEEDS.
--- NOTE | 2020-06-03 21:53 | NUR ---
HS MEDICATIONS GIVEN. HS SNACK GIVEN: ICE CREAM, MADELINE CRACKERS, AND ORANGE JUICE.
--- NOTE | 2020-06-04 | NUR ---
NPO STATUS BEGINS NOW PER ORDER. REMOVED ALL CUPS AND FOOD FROM BEDSIDE TABLE.
[2020-06-04 04:00] VITALS: BP 128/62
[2020-06-04 05:55] LABS: BASOPHILS 0.3 % (0-2); EOSINOPHILS 1.4 % (0-7); HEMATOCRIT 37.8 % (42.0-54.0); IMMATURE GRANULOCYTES 1.2 % (0-5); LYMPHOCYTES 22.5 % (15-50); MCH 26.5 pg (26.0-34.0); MCHC 31.7 g/dL (31.0-37.0); MCV 83.6 fL (80.0-100.0); MEAN PLATELET VOLUME 9.9 fL (7.4-10.4); NEUTROPHILS 64.6 % (40-80); PLATELET COUNT 265 10x3/uL (130-400); RBC 4.52 10x6/uL (4.20-6.10); RDW 14.9 % (11.5-14.5); WBC 5.9 10x3/uL (4.8-10.8)
[2020-06-04 06:10] LABS: CALC OSMOLALITY 275 mosm/kg (275-300); CALCIUM 8.4 mg/dL (8.5-10.1); CARBON DIOXIDE 27.6 mmol/L (21.0-32.0); CHLORIDE - SERUM 105 mmol/L (98-107); GLUCOSE 84 mg/dL (74-106); MAGNESIUM - SERUM 1.9 mg/dL (1.8-2.4); PHOSPHOROUS 3.6 mg/dL (2.5-4.9); POTASSIUM - SERUM 4.5 mmol/L (3.5-5.1); SODIUM 139 mmol/L (136-145); UREA NITROGEN 9 mg/dL (7-18); eGFR NON AFRICAN AMERICAN 77 mL/min (90-120)
[2020-06-04 06:30] VITALS: BP 132/68
[2020-06-04 10:00] VITALS: BP 142/77
[2020-06-04 12:42] VITALS: BP 140/60
[2020-06-04 15:56] VITALS: BP 146/82
--- NOTE | 2020-06-04 16:10 | NUR ---
RETURN BACK FROM PROCEDURE EASILY TO AROUSED WHEN NAME IS CALLED. RESP EVEN AND UNLABORED WITH NO DISTRESS NOTED OR VOICED. DRESSING NOTED TO LEFT ANKLE AND RIGHT GROIN. RECD CALL FROM RN IN IR STATING THAT MD IS GOING TO START PT ON HEPARIN IN ABOUT TWO HOURS. AWAITING ORDERS. NEW IV STARTED TO LEFT FOREARM WHICH IS SL LOCK. REMAIN AT BEDSIDE. C/L IN REACH AT BEDSIDE.
--- NOTE | 2020-06-04 16:28 | NUR ---
I have reviewed this patient and I concur with the Shift Assessment completed by the Licensed Practical Nurse today this shift.
[2020-06-04 17:15] LABS: HEMATOCRIT 41.7 % (42.0-54.0); HEMOGLOBIN 13.2 g/dL (13.5-17.5); MCH 26.2 pg (26.0-34.0); MCHC 31.7 g/dL (31.0-37.0); MCV 82.9 fL (80.0-100.0); MEAN PLATELET VOLUME 9.4 fL (7.4-10.4); RBC 5.03 10x6/uL (4.20-6.10); RDW 14.8 % (11.5-14.5); WBC 6.7 10x3/uL (4.8-10.8)
[2020-06-04 17:33] LABS: INR 1.15 (0.85-1.17); PROTIME 14.7 SECONDS (11.6-15.0)
[2020-06-04 17:52] LABS: APTT 192.2 SECONDS (22.8-39.4)
--- NOTE | 2020-06-04 19:00 | NUR ---
BEDSIDE REPORT RECEIVED AND CARE OF PT ASSUMED. PT LYING IN SUPINE POSITION VISITING WITH SPOUSE. PT MUST LIE FLAT UNTIL 1914 BECAUSE OF PROCEDURE. IV TO LEFT AC PATENT WITH NS INFUSING AT 75 ML/HR.
[2020-06-04 20:00] VITALS: BP 156/80
--- NOTE | 2020-06-04 20:49 | NUR ---
STARTED HEPARIN DRIP AT 800 UNITS PER HOUR PER ORDER. SCHEDULED APTT TO BE DRAWN AT 0230 PER PROTOCOL.
--- NOTE | 2020-06-04 20:56 | NUR ---
HS MEDICATIONS GIVEN TO INCLUDE MORPHINE 4 MG IVP PER REQUEST FOR PAIN.
[2020-06-05] VITALS: BP 146/74
[2020-06-05 02:20] LABS: BASOPHILS 0.1 % (0-2); EOSINOPHILS 0.1 % (0-7); HEMATOCRIT 40.2 % (42.0-54.0); HEMOGLOBIN 12.8 g/dL (13.5-17.5); IMMATURE GRANULOCYTES 0.5 % (0-5); LYMPHOCYTES 9.4 % (15-50); MCH 26.6 pg (26.0-34.0); MCHC 31.8 g/dL (31.0-37.0); MCV 83.6 fL (80.0-100.0); MEAN PLATELET VOLUME 9.3 fL (7.4-10.4); MONOCYTES 4.9 % (2-11); PLATELET COUNT 220 10x3/uL (130-400); RBC 4.81 10x6/uL (4.20-6.10); RDW 14.6 % (11.5-14.5); WBC 8.1 10x3/uL (4.8-10.8)
[2020-06-05 02:32] LABS: CALC OSMOLALITY 278 mosm/kg (275-300); CALCIUM 8.6 mg/dL (8.5-10.1); CARBON DIOXIDE 29.1 mmol/L (21.0-32.0); CHLORIDE - SERUM 104 mmol/L (98-107); MAGNESIUM - SERUM 1.8 mg/dL (1.8-2.4); PHOSPHOROUS 3.4 mg/dL (2.5-4.9); POTASSIUM - SERUM 4.2 mmol/L (3.5-5.1); SODIUM 139 mmol/L (136-145); UREA NITROGEN 7 mg/dL (7-18); eGFR NON AFRICAN AMERICAN 77 mL/min (90-120)
[2020-06-05 02:41] LABS: GLUCOSE 159 mg/dL (74-106)
[2020-06-05 04:00] VITALS: BP 137/65
--- NOTE | 2020-06-05 08:48 | NUR ---
PATIENT SITTING UP ON SIDE OF BED EATING BREAKFAST. FLOR IN ROOM. CO OF PAIN AT A 8 OUT OF 10. MEDS GIVEN PER EMAR. CL IN REACH. WCTM
[2020-06-05 09:17] VITALS: BP 145/83
[2020-06-05 11:12] VITALS: Ht 177.8 cm; Wt 67.1 kg
--- NOTE | 2020-06-05 11:46 | NUR ---
FLOR ASSISTED PT WITH SHOWER AND CHANGING THE BED. CL IN REACH. NO FURTHER NEEDS AT THIS TIME. WCTM
[2020-06-05 13:08] VITALS: BP 130/68
--- NOTE | 2020-06-05 13:50 | NUR ---
PT REQUESTED IV THERAPY RESITED BECAUSE LEFT AC LEAKING. LEFT AC DC'ED WITH TIP INTACT. RESTARTED IV THERAPY IN RIGHT FOREARM WITH A 20G. 2ND ATTEMPT. CL IN REACH. BED IN LOW POSITION. WCTM
--- NOTE | 2020-06-05 14:56 | NUR ---
PT TAKING A NAP. LAYING ON BACK. NO NEEDS AT THIS TIME. WCTM
--- NOTE | 2020-06-05 17:19 | NUR ---
PT SITTING ON SIDE OF BED EATING DINNER. NO CO AT THIS TIME. NO NEEDS AT THIS TIME. WCTM
[2020-06-05 17:29] VITALS: BP 132/69
--- NOTE | 2020-06-05 19:00 | NUR ---
BEDSIDE REPORT RECEIVED AND CARE OF PT ASSUMED. PT LYING IN SUPINE POSITION VISITING WITH SPOUSE. IV TO RIGHT FA PATENT WITH NS INFUSING AT 75 ML/HR, AND IV TO LEFT FA PATENT WITH HEPARIN INFUSING AT 9 ML/HR. WILL MONITOR FOR NEEDS.
[2020-06-05 20:00] VITALS: BP 138/70
--- NOTE | 2020-06-05 20:30 | NUR ---
HS MEDICATIONS GIVEN TO INCLUDE MORPHINE 4 MG IVP PER REQUEST FOR PAIN.
--- NOTE | 2020-06-05 20:45 | NUR ---
GAVE DREA X2 FOR HS SNACK.
[2020-06-06] VITALS: BP 130/67
--- NOTE | 2020-06-06 02:43 | NUR ---
PT REQUESTING PAIN MEDICATION FOR PAIN IN FOOT AT LEVEL 9/10. GAVE MORPHINE 4 MG IVP PER PRN ORDER. WILL CONTINUE TO MONITOR FOR NEEDS.
[2020-06-06 04:00] VITALS: BP 142/70
[2020-06-06 06:26] LABS: BASOPHILS 0.2 % (0-2); EOSINOPHILS 1.9 % (0-7); HEMATOCRIT 35.4 % (42.0-54.0); IMMATURE GRANULOCYTES 0.6 % (0-5); LYMPHOCYTES 22.5 % (15-50); MCH 25.9 pg (26.0-34.0); MCHC 31.1 g/dL (31.0-37.0); MCV 83.3 fL (80.0-100.0); MEAN PLATELET VOLUME 10.2 fL (7.4-10.4); NEUTROPHILS 64.8 % (40-80); PLATELET COUNT 179 10x3/uL (130-400); RBC 4.25 10x6/uL (4.20-6.10); RDW 14.9 % (11.5-14.5); WBC 6.3 10x3/uL (4.8-10.8)
[2020-06-06 06:54] LABS: CALC OSMOLALITY 273 mosm/kg (275-300); CALCIUM 7.7 mg/dL (8.5-10.1); CARBON DIOXIDE 26.2 mmol/L (21.0-32.0); CHLORIDE - SERUM 106 mmol/L (98-107); CREATININE - SERUM 0.8 mg/dL (0.6-1.3); GLUCOSE 117 mg/dL (74-106); MAGNESIUM - SERUM 1.6 mg/dL (1.8-2.4); PHOSPHOROUS 3.8 mg/dL (2.5-4.9); POTASSIUM - SERUM 4.6 mmol/L (3.5-5.1); SODIUM 138 mmol/L (136-145); UREA NITROGEN 5 mg/dL (7-18); eGFR NON AFRICAN AMERICAN > 90 mL/min (90-120)
--- NOTE | 2020-06-06 08:33 | NUR ---
FLOR IN ROOM. PT AND SITTING ON SIDE OF BED EATING BREAKFAST. NO NEEDS AT THIS TIME. CL IN REACH. WCTM
[2020-06-06 09:27] VITALS: BP 148/74
--- NOTE | 2020-06-06 16:06 | NUR ---
PT TAKING A NAP. NO NEEDS AT THIS TIME. WCTM
[2020-06-06 17:48] VITALS: BP 130/70
--- NOTE | 2020-06-06 19:00 | NUR ---
BEDSIDE REPORT RECEIVED AND CARE OF PT ASSUMED. PT LYING IN SUPINE POSITION VISITING WITH SPOUSE. IV TO RIGHT FA PATENT WITH NS INFUSING AT 75 ML/HR, AND LEFT FA PATENT WITH HEPARIN INFUSING AT 8. PEDAL PULSE PALPATED FAINTLY IN LEFT FOOT. WILL MONITOR FOR NEEDS.
--- NOTE | 2020-06-06 19:57 | NUR ---
HS MEDICATIONS GIVEN TO INCLUDE MORPHINE 4 MG IVP PER REQUEST FOR PAIN. WILL MONITOR FOR EFFECTIVENESS.
--- NOTE | 2020-06-06 20:05 | NUR ---
HS SNACK PROVIDED: X2 VANILLA ICE CREAM AND MADELINE CRACKERS.
[2020-06-06 20:28] VITALS: BP 151/67
[2020-06-07 00:24] VITALS: BP 134/73
[2020-06-07 04:51] VITALS: BP 136/75
[2020-06-07 06:41] LABS: HEMOGLOBIN 11.6 g/dL (13.5-17.5); MCH 26.1 pg (26.0-34.0); MCHC 31.4 g/dL (31.0-37.0); MCV 83.1 fL (80.0-100.0); MEAN PLATELET VOLUME 10.1 fL (7.4-10.4); RBC 4.45 10x6/uL (4.20-6.10); RDW 14.7 % (11.5-14.5); WBC 5.8 10x3/uL (4.8-10.8)
[2020-06-07 08:41] VITALS: BP 149/84
[2020-06-07 08:56] LABS: ALBUMIN 2.7 g/dL (3.4-5.0); ALKALINE PHOSPHATASE 42 U/L (30-120); ALT (SGPT) 23 U/L (10-68); BILIRUBIN - TOTAL 0.43 mg/dL (0.2-1.3); CALC OSMOLALITY 275 mosm/kg (275-300); CALCIUM 8.7 mg/dL (8.5-10.1); CARBON DIOXIDE 30.2 mmol/L (21.0-32.0); CHLORIDE - SERUM 105 mmol/L (98-107); GLUCOSE 89 mg/dL (74-106); MAGNESIUM - SERUM 1.7 mg/dL (1.8-2.4); PHOSPHOROUS 3.8 mg/dL (2.5-4.9); PROTEIN - SERUM 6.6 g/dL (6.4-8.2); SODIUM 140 mmol/L (136-145); UREA NITROGEN 6 mg/dL (7-18); eGFR NON AFRICAN AMERICAN 77 mL/min (90-120)
[2020-06-07 08:59] LABS: POTASSIUM - SERUM 3.7 mmol/L (3.5-5.1)
--- NOTE | 2020-06-07 12:12 | NUR ---
PATIENT IN BED TALKING TO FAMILY AT BEDSIDE. DENIES PAIN OR NEEDS AT THIS TIME. BED LOW POSITION, CALL LIGHT IN REACH. WILL CONTINUE TO MONITOR.
[2020-06-07 13:12] VITALS: BP 138/74
[2020-06-07 16:24] VITALS: BP 134/68
[2020-06-07 17:25] LABS: INR 1.12 (0.85-1.17); PROTIME 14.4 SECONDS (11.6-15.0)
[2020-06-07 20:00] VITALS: BP 126/66
--- NOTE | 2020-06-07 20:40 | NUR ---
REC'D CHGE OF SHIFT WALKING ROUNDS IN BED AT BEDSIDE INSTRUCTED NPO AT MIDNITE FOR PROCEDURE VOICES UNDERSTANDING DENIES ANY COMPLAINTS AT PRESENT TIME. WILL CONTINUE TO MONITOR FOR ANY CHGES AND FOLLOW CURRENT PLAN OF CARE.
[2020-06-08] VITALS (54 sets, daily range): BP systolic 103–141; BP diastolic 48–69
[2020-06-08 06:42] LABS: BASOPHILS 0.4 % (0-2); EOSINOPHILS 1.5 % (0-7); HEMATOCRIT 40.1 % (42.0-54.0); HEMOGLOBIN 12.6 g/dL (13.5-17.5); IMMATURE GRANULOCYTES 0.6 % (0-5); LYMPHOCYTES 24.8 % (15-50); MCH 26.1 pg (26.0-34.0); MCHC 31.4 g/dL (31.0-37.0); MCV 83.2 fL (80.0-100.0); MEAN PLATELET VOLUME 11.1 fL (7.4-10.4); NEUTROPHILS 63.7 % (40-80); PLATELET COUNT 240 10x3/uL (130-400); RBC 4.82 10x6/uL (4.20-6.10); RDW 14.8 % (11.5-14.5); WBC 5.5 10x3/uL (4.8-10.8)
--- NOTE | 2020-06-08 06:53 | NUR ---
0600) HEPARIN DRIP DC'D. ORDERED.MULTIPLE PRE-OP ORDERS APPEARING ON NOV DISCUSSED WITH CHARGE NURSE. 629 SURGERY HERE NO CALLED REC'D FROM OR TO PRE-OP
[2020-06-08 06:56] LABS: ALBUMIN 2.8 g/dL (3.4-5.0); ALKALINE PHOSPHATASE 43 U/L (30-120); CALC OSMOLALITY 275 mosm/kg (275-300); CALCIUM 8.8 mg/dL (8.5-10.1); CARBON DIOXIDE 26.7 mmol/L (21.0-32.0); CHLORIDE - SERUM 103 mmol/L (98-107); GLUCOSE 92 mg/dL (74-106); MAGNESIUM - SERUM 1.8 mg/dL (1.8-2.4); POTASSIUM - SERUM 3.7 mmol/L (3.5-5.1); PROTEIN - SERUM 7.2 g/dL (6.4-8.2); SODIUM 139 mmol/L (136-145); UREA NITROGEN 6 mg/dL (7-18); eGFR NON AFRICAN AMERICAN 77 mL/min (90-120)
[2020-06-08 06:58] LABS: ALT (SGPT) 33 U/L (10-68)
--- NOTE | 2020-06-08 09:11 | EC ---
PATIENT:TARAH ROCK DATE OF SERVICE: 05/31/20 SEX: M MEDICAL RECORD: [id number] DATE OF : 42 LOCATION:D.MS [address] AGE OF PATIENT: 80 ADMISSION DATE: 05/31/20 REFERRING PHYSICIAN: INTERPRETING PHYSICIAN: KENY HERNANDEZ MD ECHOCARDIOGRAM REPORT ECHO CHARGES 5 ECHO LIMITED Date: 06/07/20 CLINICAL DIAGNOSIS: CAD, PREOP LV FUNCTION ECHOCARDIOGRAPHIC MEASUREMENTS (adult normal given) AC root (d.<3.7cm) 0 cm LV Septum d (<1.2 cm> 00 cm Valve Excursion 0 cm LV Septum (systole) 0 cm Left Atria (s.<4.0cm> 0 cm LVPW d(<1.2cm) 0 cm RV (d.<2.3cm) 0 cm LVPW (sytole) 0 cm LV diastole(<5.6CM) 0 cm MV E-F(>70mm/sec) 0 cm LV systole 0 cm LVOT Diameter 0 cm MV exc.(>10mm) 0 cm Est.ejection fraction (50-75%) % DOPPLER: LVIT cm/sec A 00 cm/sec E cm/sec LA 0 cm/sec RVSP 0 mmHg LVOT 0 cm/sec AOP1/2T 0 m/s Asc. Ao 0 cm/sec RVOT 0 cm/sec RA 0 cm/sec PA 0 cm/sec AV Gradient Peak 0 mmHg AV Mean 0 mmHg AV Area 0 cm MV Gradient Peak 0 mmHg MV Mean 0 mmHg MV Area 0 cm COMMENTS: Addressing Machine Operator: Thi [facility] Insurance Clerk: 3 Dr. Hood TAPE# PACS Pericardial Effusion N DATE OF SERVICE: Technically limited study for preoperative LV function and valve pathology. Grossly, no LVH. LV internal dimension is normal. Wall motion is normal. EF is greater than or equal to 55%. Aortic valve is tricuspid with good valve excursion. No significant AI. Left atrium appears grossly normal. Mitral valve appears normal. Trace MR. Right-sided chambers are grossly normal. Trace TR. ECHOCARDIOGRAM REPORT [id number] TARAH ROCK TRANSINT:[id number] Voice Confirmation ID: [id number] DOCUMENT ID: [id number] KENY HERNANDEZ MD at 0911 CC: [id number] DICTATION DATE: 06/07/20 2976 MAILMASTER: 06/08/20 0040 ADM IN [facility] [address] [id number]
--- NOTE | 2020-06-08 14:51 | OP ---
PATIENT NAME: TARAH ROCK MEDICAL RECORD: [id number] :44 LOCATION:D.CVI D.CV02 ADMISSION DATE:05/31/20 SURGEON: JOHANNY BRITO MD DATE OF OPERATION: 06/08/2020 SURGEON: Johanny Brito MD PROCEDURE PERFORMED: Left common and superficial femoral endarterectomy with patch angioplasty. PREOPERATIVE DIAGNOSES: Threatened limb ischemia, femoral stenosis. POSTOPERATIVE DIAGNOSES: Threatened limb ischemia, femoral stenosis. ANESTHESIA: General. SPECIMENS: Plaque. COMPLICATIONS: None. CONDITION: Stable. DISPOSITION: CV ICU. BLOOD LOSS: Minimal. FINDINGS: Irregular posterior plaque extending the entire length of the common femoral and circumferentially in the superficial femoral for at least 3 cm, long CorMatrix patch used for closure with good Doppler signals, profunda and superficial femoral. After repair, the indication status post percutaneous intervention by interventional radiology with balloon rupture and incomplete revascularization. PROCEDURE IN DETAIL: The patient was brought to the operating suite, prepped and draped. Vertical incision was made over the left groin, common femoral up to behind the inguinal ligament with a soft spot on the external, preserving the inferior epigastric branch was dissected out the profunda branches, one large lateral branch and superficial femoral were dissected out, encircled with vessel loops. Heparin was given. After the heparin circulated, inflow was controlled with a clamp and backbleeding with vessel loops. Arteriotomy was begun in the region of relatively soft superficial femoral about 3 cm below the origin through the dense calcification up to the proximal common femoral. Plaque was amputated by briefly removing clamp. The calcified clamp was removed as much as possible. Thorough irrigation was undertaken. All bits of loose debris were removed. Backbleeding was allowed from all major vessels. Patch was fashioned to the appropriate size and sutured along the edge of the arteriotomy. Prior to completing the anastomosis, backbleeding again allowed from all major vessels. The anastomosis was completed. After flushing the endarterectomy bed, flow was restored first to the profunda, then to the superficial femoral. Interrupted patch sutures for hemostasis. Good Doppler signal was noted. Protamine was given. Thorough antibiotic irrigation was performed. The wound was closed in 2 layers, Dermabond on the skin. Needle and sponge counts correct and the patient to CV ICU. TRANSINT:[id number] Voice Confirmation ID: [id number] DOCUMENT ID: [id number] OPERATIVE REPORT [id number] SHWETA,JOHANNY DESHPANDE MD at 1451 CC: ANDRES FISCHER [id number] DICTATION DATE: 06/08/2057 STRAPPER: 06/08/20 1323 ADM IN [facility] [address] [id number]
[2020-06-09] VITALS (51 sets, daily range): BP systolic 95–157; BP diastolic 37–76
[2020-06-09 05:51] LABS: BASOPHILS 0.3 % (0-2); EOSINOPHILS 0.7 % (0-7); IMMATURE GRANULOCYTES 0.4 % (0-5); LYMPHOCYTES 14.2 % (15-50); MCH 26.3 pg (26.0-34.0); MCHC 31.8 g/dL (31.0-37.0); MCV 82.5 fL (80.0-100.0); MEAN PLATELET VOLUME 9.8 fL (7.4-10.4); MONOCYTES 7.7 % (2-11); NEUTROPHILS 76.7 % (40-80); PLATELET COUNT 204 10x3/uL (130-400); RDW 14.6 % (11.5-14.5); WBC 6.8 10x3/uL (4.8-10.8)
[2020-06-09 06:14] LABS: RBC 3.54 10x6/uL (4.20-6.10)
[2020-06-09 06:15] LABS: HEMATOCRIT 29.2 % (42.0-54.0); HEMOGLOBIN 9.3 g/dL (13.5-17.5)
[2020-06-09 06:18] LABS: ALKALINE PHOSPHATASE 30 U/L (30-120); ALT (SGPT) 27 U/L (10-68); BILIRUBIN - TOTAL 0.68 mg/dL (0.2-1.3); CALCIUM 7.5 mg/dL (8.5-10.1); CARBON DIOXIDE 27.4 mmol/L (21.0-32.0); CHLORIDE - SERUM 103 mmol/L (98-107); GLUCOSE 103 mg/dL (74-106); MAGNESIUM - SERUM 1.7 mg/dL (1.8-2.4); PROTEIN - SERUM 5.4 g/dL (6.4-8.2); SODIUM 135 mmol/L (136-145); eGFR NON AFRICAN AMERICAN 77 mL/min (90-120)
[2020-06-09 06:19] LABS: CALC OSMOLALITY 268 mosm/kg (275-300); UREA NITROGEN 9 mg/dL (7-18)
--- NOTE | 2020-06-09 10:18 | NUR ---
Nutrition Follow-up: POD 1 L common & superficial femoral endarterectomy and patch angioplasty, POD 5 LLE arteriogram with angioplasty. Good appetite. Reports eating all of breakfast this AM. Diet: Regular Wt: 147.7# (06/09) Last BM: 06/08 Labs noted: Na 135, Ca 7.5, Mg 1.7, Alb 2.0 Meds noted: Senokot, Colace, electrolyte protocol -RD following.
--- NOTE | 2020-06-09 14:24 | NUR ---
REPORT CALLED TO EMERSON RICHEY ON MED II.
--- NOTE | 2020-06-09 14:45 | NUR ---
PATIENT TRANSFERRED TO [facility] ROOM 2121 VIA W/C IN GOOD STABLE CONDITION. PATIENT TRANSFERRED OVER TO BED WITH MINIMAL ASSIST NEEDED.
--- NOTE | 2020-06-09 14:58 | NUR ---
RECEIVED PT FROM CVICU. PT IS AAO AND UP WITH ASSIST. CALL LIGHT W/I REACH. FALL PRECAUTIONS IN PLACE. CVL AND BILAT FOREARM PIV'S SALINE LOCKED. RR EVEN AND UNLABORED ON RA. NO S/S OF DISTRESS NOTED. PT ORIENTED TO ROOM. PT DENIES ANY NEEDS AT THIS TIME. WILL CTM.
--- NOTE | 2020-06-09 16:43 | MORECARE ---
CASE MANAGEMENT DISCHARGE SUMMARY PATIENT: TARAH OCHOA UNIT: [id number] ADM DATE: 05/31/20 AGE: 80 : 42 SEX: M ROOM/BED: D.2121 AUTHOR: CHELY COX PHYSICIAN: REFERRING PHYSICIAN: DERRELL FISCHER MD DATE OF SERVICE: 06/09/20 Discharge Plan Patient Name: TARAH OCHOA [facility] [facility] 1940 Planned Disposition: Home with Home Health Anticipated Discharge Date: Discharge Date: Expected LOS: Initial Reviewer: [email or web address] Initial Review Date: 06/09/2020 Generated: 06/09/20 5:42 pm DCPIA - Discharge Planning Initial Assessment Updated by [email or web address]: Garrett Valladares on 06/09/20 4:40 pm * Is the patient Alert and Oriented? Yes * How many steps to enter\exit or inside your home? 1/0 * PCP Dr. Ku * Pharmacy [facility] [address] * Preadmission Environment Home with Family * ADLs Independent * Equipment None * Other Equipment n/a * List name and contact numbers for known caregivers / representatives who currently or will assist patient after discharge: Claudio Ochoa (Spouse) [phone] * Verbal permission to speak to the caregivers and representatives has been obtained from the patient. Yes * Community resources currently utilized None * Additional services required to return to the preadmission environment? No * Can the patient safely return to the preadmission environment? Yes * Has this patient been hospitalized within the prior 30 days at any hospital? No Patient Name: TARAH OCHOA Page [phone] at 1643 All edits/amendments must be made on the electronic document DICTATION DATE: 06/09/201641 GEAR CHANGER: VINNY 06/09/201641 RPT#: [id number] DC DATE: STATUS: ADM IN [facility] [address] [place] [address] END OF REPORT
[2020-06-10] VITALS: BP 122/60
[2020-06-10 04:00] VITALS: BP 117/56
[2020-06-10 06:53] LABS: BASOPHILS 0.2 % (0-2); EOSINOPHILS 2.8 % (0-7); HEMATOCRIT 31.1 % (42.0-54.0); IMMATURE GRANULOCYTES 0.7 % (0-5); MCH 26.3 pg (26.0-34.0); MCHC 32.2 g/dL (31.0-37.0); MCV 81.8 fL (80.0-100.0); MEAN PLATELET VOLUME 10.2 fL (7.4-10.4); MONOCYTES 11.4 % (2-11); NEUTROPHILS 65.9 % (40-80); PLATELET COUNT 199 10x3/uL (130-400); RDW 14.3 % (11.5-14.5); WBC 5.8 10x3/uL (4.8-10.8)
[2020-06-10 06:58] LABS: ALBUMIN 2.1 g/dL (3.4-5.0); ALKALINE PHOSPHATASE 33 U/L (30-120); ALT (SGPT) 32 U/L (10-68); BILIRUBIN - TOTAL 0.48 mg/dL (0.2-1.3); CALC OSMOLALITY 276 mosm/kg (275-300); CALCIUM 7.7 mg/dL (8.5-10.1); CARBON DIOXIDE 27.2 mmol/L (21.0-32.0); CHLORIDE - SERUM 104 mmol/L (98-107); CREATININE - SERUM 0.8 mg/dL (0.6-1.3); GLUCOSE 133 mg/dL (74-106); MAGNESIUM - SERUM 1.8 mg/dL (1.8-2.4); POTASSIUM - SERUM 3.9 mmol/L (3.5-5.1); SODIUM 138 mmol/L (136-145); UREA NITROGEN 9 mg/dL (7-18); eGFR NON AFRICAN AMERICAN > 90 mL/min (90-120)
[2020-06-10 09:06] VITALS: BP 149/53
[2020-06-10] MEDS ORDERED: PLAVIX75 MG PO (10:10)
--- NOTE | 2020-06-10 10:29 | NUR ---
ESCOBAR CATH DCD 700CCOP AND 10CC BULB. WILL MONITOR VOID.
--- NOTE | 2020-06-10 13:19 | NUR ---
IVS DCD. DC PLANS GIVEN. UNDERSTANDING VOICED. WAITING FOR HIS TO ARRIVE FOR TRANSPORTATION.
--- NOTE | 2020-06-10 14:15 | MORECARE ---
CASE MANAGEMENT DISCHARGE SUMMARY PATIENT: TARAH OCHOA UNIT: [id number] ADM DATE: 05/31/20 AGE: 80 : 42 SEX: M ROOM/BED: D.1992 AUTHOR: KENNY,DOC PHYSICIAN: REFERRING PHYSICIAN: DERRELL FISCHER MD DATE OF SERVICE: 06/10/20 Discharge Plan Patient Name: TARAH OCHOA Facility: [facility]:[place] : 1940 Planned Disposition: Home with Home Health Anticipated Discharge Date: 06/10/20 Discharge Date: Expected LOS: 10 Initial Reviewer: [email or web address] Initial Review Date: 06/09/2020 Generated: 06/10/20 3:15 pm Comments DCP- Discharge Planning Updated by [email or web address]: Merlene Field on 06/10/20 1:[address] BIBI signed for Care IV HHS, per patient request. CM contacted Manuel Snyder, notified of DC today. Faxed required information to Manuel @[phone]. DCP- Discharge Planning Updated by [email or web address]: Garrett Valladares on 06/09/20 3:[address] Patient Name: TARAH OCHOA Admission Status: ER Accout number: [id number] Admission Date: 05-31-2020 : 1940 Admission Diagnosis:CELLULITIS OF LEFT LOWER LIMB Attending: ANDRES FISCHER Current LOS: 9 Anticipated DC Date: Planned Disposition: Home with Home Health Primary Insurance: MEDICARE A & B Discharge Planning Comments: CM met with patient to complete initial dc planning assessment. CM educated patient on the CM role and verbal consent given by patient to speak with , Claudio Ochoa ([phone]) to complete assessment. Phone call to spouse to verify patient's address, phone number, and emergency contact phone numbers. Patient lives at home with his spouse Survenria. At discharge patient plans to return home and feels this is a safe discharge. CM discussed availability of home health, rehab services, and medical equipment with both the patient in hospital and his spouse over the phone. Mrs. Ochoa would like to have some sort of HH service upon discharge. She would like the HH service that she had during her previous recovery. Unfortunately, she does not recall the name of the HH service. POC was not signed for HH choice but will be signed when she calls back with information. CM informed Mrs. Ochoa that service can be coordinated through her PCP at Dr. Ku's office. Mrs. Ochoa stated that she will call CM tomorrow with information. Contact information given to Mrs. Ochoa. Patient is in agreement with his Spouse's recommendation of HH. SNF, IPR, and DME declined. No other DC needs identified at this time. Transportation provider at discharge will be with his spouse, Claudio . CM will continue to follow and will assist as needed with dc plans/needs. Director Television News: Garrett Valladares DCPIA - Discharge Planning Initial Assessment Updated by [email or web address]: Garrett Valladares on 06/09/20 4:40 pm * Is the patient Alert and Oriented? Yes * How many steps to enter\exit or inside your home? 1/0 * PCP Dr. Ku * [facility] [address] * Preadmission Environment Home with Family * ADLs Independent * Equipment None * Other Equipment n/a * List name and contact numbers for known caregivers / representatives who currently or will assist patient after discharge: Claudio Ochoa (Spouse) [phone] * Verbal permission to speak to the caregivers and representatives has been obtained from the patient. Yes * Community resources currently utilized None * Additional services required to return to the preadmission environment? No * Can the patient safely return to the preadmission environment? Yes * Has this patient been hospitalized within the prior 30 days at any hospital? No External Providers External Provider: [facility] Next Contact Date: Service Request Date: Service Type: Resolution: Reviewer: Comments: Coverage Notice Reviewer: [email or web address] - Garrett Valladares Notice Issued Date-Time: 06/09/2020 16:26 Notice Type: IM Discharge Notice Notice Delivered To: Patient Relationship to Patient: Midwife Practitioner Name: Delivery Method: HAND - Hand Delivered Justyna Days: Prior Verbal Notification: Recipient Understood Notice: Yes Recipient Signature: Yes Med Rec Note Co-signed by Attending: Coverage Notice Comment: IMM explained, understood, signed, copy given to patient, and copy placed on chart. Last DP export: 06/09/20 3:42 p Patient Name: TARAH OCHOA Page [id number] at 1415 All edits/amendments must be made on the electronic document DICTATION DATE: 06/10/201414 [employer] CONSULTANT: VINNY 06/10/201414 RPT#: [id number] DC DATE: STATUS: ADM IN [facility] [address] [place] [address] END OF REPORT
--- NOTE | 2020-06-10 15:22 | NUR ---
ESCORTED TO CAR BY W/C.
--- NOTE | 2020-06-10 15:56 | MORECARE ---
CASE MANAGEMENT DISCHARGE SUMMARY PATIENT: TARAH OCHOA UNIT: [id number] ADM DATE: 05/31/20 AGE: 80 : 42 SEX: M ROOM/BED: D.8740 AUTHOR: KENNY,DOC PHYSICIAN: REFERRING PHYSICIAN: DERRELL FISCHER MD DATE OF SERVICE: 06/10/20 Discharge Plan Patient Name: TARAH OCHOA [facility]:[place] : 1940 Planned Disposition: Home with Home Health Anticipated Discharge Date: 06/10/20 Discharge Date: 06/10/2020 Expected LOS: 10 Initial Reviewer: [email or web address] Initial Review Date: 06/09/2020 Generated: 06/10/20 4:56 pm Comments DCP- Discharge Planning Updated by [email or web address]: Merlene Field on 06/10/20 2:[address] BIBI signed for Care IV HHS, per patient request. CM contacted Manuel Snyder, notified of DC today. Faxed required information to Manuel @[phone]. SOC will be Thursday 06/14. DCP- Discharge Planning Updated by [email or web address]: Garrett Valladares on 06/09/20 3:[address] Patient Name: TARAH OCHOA Admission Status: ER Accout number: [id number] Admission Date: 05-31-2020 : 1940 Admission Diagnosis:CELLULITIS OF LEFT LOWER LIMB Attending: ANDRES FISCHER Current LOS: 9 Anticipated DC Date: Planned Disposition: Home with Home Health Primary Insurance: MEDICARE A & B Discharge Planning Comments: CM met with patient to complete initial dc planning assessment. CM educated patient on the CM role and verbal consent given by patient to speak with , Claudio Ochoa ([phone]) to complete assessment. Phone call to spouse to verify patient's address, phone number, and emergency contact phone numbers. Patient lives at home with his spouse Survenria. At discharge patient plans to return home and feels this is a safe discharge. CM discussed availability of home health, rehab services, and medical equipment with both the patient in hospital and his spouse over the phone. Mrs. Ochoa would like to have some sort of HH service upon discharge. She would like the HH service that she had during her previous recovery. Unfortunately, she does not recall the name of the HH service. POC was not signed for HH choice but will be signed when she calls back with HH information. CM informed Mrs. Ochoa that HH service can be coordinated through her PCP at Dr. Ku's office. Mrs. Ochoa stated that she will call CM tomorrow with information. Contact information given to Mrs. Ochoa. Patient is in agreement with his Spouse's recommendation of HH. SNF, IPR, and DME declined. No other DC needs identified at this time. Transportation provider at discharge will be with his spouse, Claudio . CM will continue to follow and will assist as needed with dc plans/needs. Tobacco Weigher: Garrett Valladares DCPIA - Discharge Planning Initial Assessment Updated by [email or web address]: Garrett Valladares on 06/09/20 4:40 pm * Is the patient Alert and Oriented? Yes * How many steps to enter\exit or inside your home? 1/0 * PCP Dr. Ku * [facility] [address] * Preadmission Environment Home with Family * ADLs Independent * Equipment None * Other Equipment n/a * List name and contact numbers for known caregivers / representatives who currently or will assist patient after discharge: Claudio Ochoa (Spouse) [phone] * Verbal permission to speak to the caregivers and representatives has been obtained from the patient. Yes * Community resources currently utilized None * Additional services required to return to the preadmission environment? No * Can the patient safely return to the preadmission environment? Yes * Has this patient been hospitalized within the prior 30 days at any hospital? No Coverage Notice Reviewer: [id number] - Garertt Valladares Notice Issued Date-Time: 06/09/2020 16:26 Notice Type: IM Discharge Notice Notice Delivered To: Patient Relationship to Patient: Repertoire Manager Name: Delivery Method: HAND - Hand Delivered Justyna Days: Prior Verbal Notification: Recipient Understood Notice: Yes Recipient Signature: Yes Med Rec Note Co-signed by Attending: Coverage Notice Comment: IMM explained, understood, signed, copy given to patient, and copy placed on chart. Last DP export: 06/10/20 1:15 p Patient Name: TARAH OCHOA Page [id number] at 1556 All edits/amendments must be made on the electronic document DICTATION DATE: 06/10/20 1556 MANUFACTURING ENGINEER CHIEF: VINNY 06/10/20 1556 RPT#: [id number] DC DATE:06/10/20 STATUS: DIS IN [facility] [address] [place] [address] END OF REPORT
--- NOTE | 2020-06-13 10:32 | MORECARE ---
CASE MANAGEMENT DISCHARGE SUMMARY PATIENT: TARAH OCHOA UNIT: [id number] ADM DATE: 05/31/20 AGE: 80 : 44 SEX: M ROOM/BED: D.3596 AUTHOR: KENNY,DOC PHYSICIAN: REFERRING PHYSICIAN: DERRELL FISCHER MD DATE OF SERVICE: 06/13/20 Discharge Plan Patient Name: TARAH OCHOA Facility: [facility]:[place] : 1940 Planned Disposition: Home with Home Health Anticipated Discharge Date: 06/10/20 Discharge Date: 06/10/2020 Expected LOS: 10 Initial Reviewer: [email or web address] Initial Review Date: 06/09/2020 Generated: 06/13/20 11:31 am Comments DCP- Discharge Planning Updated by [email or web address]: Merlene Field on 06/10/20 2:[address] BIBI signed for Care IV HHS, per patient request. CM contacted Manuel Snyder, notified of DC today. Faxed required information to Manuel @[phone]. SOC will be Thursday 06/14. DCP- Discharge Planning Updated by [email or web address]: Garrett Valladares on 06/09/20 3:[address] Patient Name: TARAH OCHOA Admission Status: ER Accout number: [id number] Admission Date: 05-31-2020 : 1940 Admission Diagnosis:CELLULITIS OF LEFT LOWER LIMB Attending: ANDRES FISCHER Current LOS: 9 Anticipated DC Date: Planned Disposition: Home with Home Health Primary Insurance: MEDICARE A & B Discharge Planning Comments: CM met with patient to complete initial dc planning assessment. CM educated patient on the CM role and verbal consent given by patient to speak with , Claudio Ochoa ([phone]) to complete assessment. Phone call to spouse to verify patient's address, phone number, and emergency contact phone numbers. Patient lives at home with his spouse Survenria. At discharge patient plans to return home and feels this is a safe discharge. CM discussed availability of home health, rehab services, and medical equipment with both the patient in hospital and his spouse over the phone. Mrs. Ochoa would like to have some sort of HH service upon discharge. She would like the HH service that she had during her previous recovery. Unfortunately, she does not recall the name of the HH service. POC was not signed for HH choice but will be signed when she calls back with HH information. CM informed Mrs. Ochoa that HH service can be coordinated through her PCP at Dr. Ku's office. Mrs. Ochoa stated that she will call CM tomorrow with information. Contact information given to Mrs. Ochoa. Patient is in agreement with his Spouse's recommendation of HH. SNF, IPR, and DME declined. No other DC needs identified at this time. Transportation provider at discharge will be with his spouse, Claudio . CM will continue to follow and will assist as needed with dc plans/needs. Transitions Rn Care Coordinator: Garrett Valladares DCPIA - Discharge Planning Initial Assessment Updated by [email or web address]: Garrett Valladares on 06/09/20 4:40 pm * Is the patient Alert and Oriented? Yes * How many steps to enter\exit or inside your home? 1/0 * PCP Dr. Ku * Pharmacy [facility] [address] * Preadmission Environment Home with Family * ADLs Independent * Equipment None * Other Equipment n/a * List name and contact numbers for known caregivers / representatives who currently or will assist patient after discharge: Claudio Ochoa (Spouse) [phone] * Verbal permission to speak to the caregivers and representatives has been obtained from the patient. Yes * Community resources currently utilized None * Additional services required to return to the preadmission environment? No * Can the patient safely return to the preadmission environment? Yes * Has this patient been hospitalized within the prior 30 days at any hospital? No Coverage Notice Reviewer: [id number] - Garrett Valladares Notice Issued Date-Time: 06/09/2020 16:26 Notice Type: IM Discharge Notice Notice Delivered To: Patient Relationship to Patient: Phthalic Acid Purifier Name: Delivery Method: HAND - Hand Delivered Justyna Days: Prior Verbal Notification: Recipient Understood Notice: Yes Recipient Signature: Yes Med Rec Note Co-signed by Attending: Coverage Notice Comment: IMM explained, understood, signed, copy given to patient, and copy placed on chart. Reviewer: [id number] - Merlene Field Notice Issued Date-Time: 06/10/2020 15:56 Notice Type: Patient Choice Letter Notice Delivered To: Patient Relationship to Patient: Self Phthalic Acid Purifier Name: Tarah Ochoa Delivery Method: HAND - Hand Delivered Justyna Days: Prior Verbal Notification: Recipient Understood Notice: Recipient Signature: Med Rec Note Co-signed by Attending: Coverage Notice Comment: Patient Choice for Care IV HHS signed/delivered to patient. Original to chart. Last DP export: 06/10/20 2:56 p Patient Name: TARAH OCHOA Page [id number] at 1032 All edits/amendments must be made on the electronic document DICTATION DATE: 06/13/20 1031 [facility] DIRECTOR: VINNY 06/13/20 1031 RPT#: [id number] DC DATE:06/10/20 STATUS: DIS IN [facility] [address] [place] [address] END OF REPORT
== END 2020-06-10 15:23 | disposition home health service (06) | DRG 581 ==
LOC: D.ER 11:17 → D.MS 14:08 → D.M2 14:08 → D.CVICU 06-08 10:36 → D.M2 06-09 14:42
PROVIDERS: Family Medicine; General Practice; Radiology Diagnostic Radiology; Thoracic Surgery (Cardiothoracic Vascular Surgery); ADMIT Emergency Medicine; ATTEND Emergency Medicine
PROC: 047L3ZZ Dilation of Left Femoral Artery, Percutaneous Approach (ICD-10-PCS; 2020-06-04)
PROC: 04UL0JZ Supplement Left Femoral Artery with Synthetic Substitute, Open Approach (ICD-10-PCS; 2020-06-08)
PROC: 04CL0ZZ Extirpation of Matter from Left Femoral Artery, Open Approach (ICD-10-PCS; principal; 2020-06-08 07:30)
DX: L03.116 Cellulitis of left lower limb (principal); D64.9 Anemia, unspecified; N40.0 Benign prostatic hyperplasia without lower urinary tract symptoms; M54.12 Radiculopathy, cervical region; E78.5 Hyperlipidemia, unspecified; I10 Essential (primary) hypertension; I25.10 Atherosclerotic heart disease of native coronary artery without angina pectoris; M19.90 Unspecified osteoarthritis, unspecified site; I77.1 Stricture of artery; I70.212 Atherosclerosis of native arteries of extremities with intermittent claudication, left leg

== ENCOUNTER → 2020-06-14 08:00 | Outpatient (CLI) | payer MEDICARE, OTHER ==
[2020-06-05 11:12] VITALS: BMI 20.5
[~2020-06-14 08:00] MED LIST changes: +NORVASC5 MG PO; +PLAVIX75 MG PO
== END | disposition home or self-care (01) ==
LOC: D.US 08:00
PROVIDERS: ATTEND Thoracic Surgery (Cardiothoracic Vascular Surgery)
DX: T14.8XXA Other injury of unspecified body region, initial encounter (principal); X58.XXXA Exposure to other specified factors, initial encounter